=== PATIENT | male | born 1980 | race Caucasian/White ===

== ENCOUNTER → 2020-10-01 08:34 | Outpatient (CLI) | payer OTHER ==
--- NOTE | 2020-10-03 15:38 | ST ---
PATIENT:MCKENZIE MACDONALD MEDICAL RECORD: [id number] SEX: M LOCATION:[facility] ORDER #: ADMISSION DATE: 10/01/20 AGE OF PATIENT: 40 REFERRING PHYSICIAN: INTERPRETING PHYSICIAN: SAKSHI MERLOS MD DATE OF SERVICE: 10/01/2020 PROCEDURE: Nuclear stress test. GATED IMAGING: Normal gated. Normal wall motion. Normal EF. Calculated EF 61%. SPECT IMAGING: SPECT imaging was performed. FINDINGS: 1. Short axis view: Short axis view shows a reversible defect from the mid anterior wall down to the anterior apex as well as reversible defect along the inferior base. This was confirmed in the horizontal axis, which shows a mid anterior and down to the anterior apical reversible ischemia as well as a reversible defect along the inferior base. 2. Vertical axis: Vertical axis shows a reversible apical defect. FINAL IMPRESSION: 1. Normal gated with normal wall motion, normal ejection fraction 61%. 2. Abnormal SPECT imaging with reversible ischemia seen in 2 territories. FINAL RECOMMENDATION: Scan is concerning for multivessel coronary artery disease with no known history of coronary artery disease and ongoing symptomatology. We will consider angiography as part of further workup. TRANSINT:[id number] Voice Confirmation ID: [id number] DOCUMENT ID: [id number] SAKSHI MERLOS MD at 1538 CC: [id number] DICTATION DATE: 10/02/20 0846 GREEN CHAIN OPERATOR: 10/03/20 0723 DEP CLI 10/01/20 [place] [id number] [place] [id number]
== END | disposition home or self-care (01) ==
LOC: D.HCCARDIO 08:34
PROVIDERS: ATTEND Internal Medicine Interventional Cardiology
DX: R06.00 Dyspnea, unspecified (principal)

== ENCOUNTER 2020-10-31 07:06 | Day surgery (SDC) | payer OTHER ==
[~2020-10-31] VITALS: Ht 175.3 cm; Wt 105.4 kg
--- NOTE | ~2020-10-31 | HEMODYNAMI ---
PATIENT:MCKENZIE MACDONALD MEDICAL RECORD: [id number] : 76 LOCATION:[facility] ADMISSION DATE: 10/31/20 Generatedon:19:40 Patient name: MCKENZIE MACDONALD Patient #: [id number] SSN: : 1980 Date of study: 10/31/2020 Page: Of Hemodynamic Procedure Report Patient Data Patient Demographics Procedure consent was obtained First Name: MCKENZIE Gender: Male Last Name: RENAE : 1980 Patient #: [id number] Age: 40 year(s) Race: Unknown Additional ID: [id number] Contact details Address: [address] [place] [address] State: [place] City: [facility] Zip code: [address] Past Medical History Performed procedures and imaging results Date Procedure Procedure Results Comments Echocardiography Allergies: No known allergies Admission Admission Data Admission Date: 10/31/2020 Admission Time: 7:06 Arrival Date: 10/31/2020 Arrival Time: 0:00 Height (in.): 69 BSA: 2.2 (m2) Height (cm.): 175.26 BMI: 34.26 (kg/m2) Weight (lbs.): 232 Weight (kg.): 105.23 Lab Results Lab Result Date: 10/31/2020 Lab Result Time: 0:00 Biochemistry Name Units Result Min Max BUN mg/dl 14 --(--*-)-- 7 18 Creatinine mg/dl 1.2 --(---*)-- 0.6 1.3 eGFR ml/min 85.51022 -*(----)-- 90 120 AM CBC Name Units Result Min Max Hematocrit % 46.4 --(-*--)-- 42 54 Hemoglobin g/dl 14.5 --(*---)-- 13.5 17.5 Procedure Procedure Types Cath Procedure Diagnostic Procedure C LH w/Coronaries Sedation Charges Moderate Sedation 10-24 minutes Procedure Description Procedure Date Procedure Date: 10/31/2020 Procedure Start Time: 9:15 Procedure End Time: 9:37 Procedure Staff Name Function Sabas Palomo MD Performing Physician Merle Joyner RT Monitor Mil Martin RN Nurse Judie Mtz RT Scrub Procedure Data Cath Procedure Fluoroscopy Diagnostic fluoroscopy Total fluoroscopy Time: 2.9 time: 2.9 min min Diagnostic fluoroscopy Total fluoroscopy dose: 783 dose: 783 mGy mGy Contrast Material Contrast Material Type Amount (ml) Isovue 300 55 Entry Location Entry Primary Successful Side Size Upsize Upsize Entry Closure Diallo ccessful Closure Location (Fr) 1 (Fr) 2 (Fr) Remarks Device Remarks Radial Right 6 Fr Mechanical artery Short Compression Estimated blood loss: 5 ml Diagnostic catheters Device Type Used For End Catheter Placement DIAGNOSTIC [place] 110cm 5 Procedure Fr catheter ([id number]) DIAGNOSTIC AR1 MOD 5Fr Procedure catheter ([id number]) Procedure Complications No complications Procedure Medications Medication Administration Route Dosage 0.9% NaCl I.V. 100 ml/hr Oxygen etCO2 Nasal cannula 2 l/min Heparin Flush Bag added to field 2 bags (1000units/500ml NS) Lidocaine 2% added to field 20 Radial Cocktail added to field 1 syringe (Verapamil 2mg/Nitro 400mcg/Heparin 1500units) Versed I.V. 2 mg Fentanyl I.V. 100 mcg Radial Cocktail I.A. 1 syringe (Verapamil 2mg/Nitro 400mcg/Heparin 1500units) Versed I.V. 2 mg Fentanyl I.V. 50 mcg Hemodynamics Rest BSA: 2.2 (m2) HGB: 14.5 (g/dl) O2 Consumption: Estimated: 275.73 (ml/min) O2 Con sumption indexed: Estimated:125.33 (ml/min/m) Heart Rate: 80 (bpm) Pressure Samples Time Site Value (mmHg) Purpose Heart Use Rate(bpm) 9:19 LV 129/-17,-3 Snapshot 82 Gradients Valve Time Site Site Mean SEP/DFP Peak To Heart Use 1 2 (mmHg) (sec/min) Peak Rate (mmHg) (bpm) Aortic 9:19 LV AO 85 Snapshots Pre Cath Intra NCS Post Cath Vital Signs Time Heart Resp SPO2 etCO2 NIBP (mmHg) Rhythm Pain Sedation Rate (ipm) (%) (mmHg) Status Level (bpm) 8:43:12 79 19 97 0 125/81(111) NSR 0 (11) 10(A) , No pain 8:47:24 77 17 98 35.1 131/79(115) NSR 0 (11) 10(A) , No pain 8:51:36 64 18 98 41.9 128/90(101) NSR 0 (11) 10(A) , No pain 8:55:48 64 17 96 35.1 121/76(99) NSR 0 (11) 10(A) , No pain 9:00:53 64 17 97 42 121/75(94) NSR 0 (11) 10(A) , No pain 9:05:05 66 15 94 37.4 121/74(95) NSR 0 (11) 10(A) , No pain 9:09:19 62 16 99 38.9 118/71(103) NSR 0 (11) 10(A) , No pain 9:13:35 76 14 98 38.9 119/65(96) NSR 0 (11) 10(A) , No pain 9:17:49 83 16 98 37.4 133/68(93) NSR 0 (11) 9(A) , No pain 9:22:01 79 18 95 31.3 115/64(78) NSR 0 (11) 9(A) , No pain 9:27:00 82 18 97 38.9 Measuring NSR 0 (11) 9(A) , No pain 9:27:06 79 20 97 38.9 122/72(106) NSR 0 (11) 9(A) , No pain 9:32:05 70 16 38.9 Measuring NSR 0 (11) 9(A) , No pain 9:32:13 67 18 98 39.7 108/65(81) NSR 0 (11) 9(A) , No pain 9:37:21 65 17 97 38.2 112/66(87) NSR 0 (11) 9(A) , No pain Medications Time Medication Route Dose Verified Delivered Reason Notes Effectiveness by by 8:46:49 0.9% NaCl I.V. 100 Mil Mil Per ml/hr Mario Martin physician RN RN 8:46:58 Oxygen etCO2 2 l/min Mil Mil for low 02 Nasal Mario Martin sats cannula RN RN 8:47:09 Heparin Flush added 2 bags Mil Mil used for Bag to Lordilshad Martin procedure (1000units/500ml field RN RN NS) 8:47:25 Lidocaine 2% added 20ml Mil Mil for local to vial Lorigan Lordilshad anesthetic RN RN 8:47:38 Radial Cocktail added 1 Mil Mil used for (Verapamil to syringe Lorigan Mario procedure 2mg/Nitro field FIELDS RN 400mcg/Heparin 1500units) 9:14:18 Versed I.V. 2 mg Mil Mil for sedation Mario Martin RN RN 9:14:28 Fentanyl I.V. 100 mcg Mil Mil for sedation Mario Martin RN RN 9:18:21 Radial Cocktail I.A. 1 Mil Sabas for (Verapamil syringe Aletheaigan Palomo MD vasodilation 2mg/Nitro RN 400mcg/Heparin 1500units) 9:18:29 Versed I.V. 2 mg Mil Mil for sedation Mario Martin RN RN 9:18:39 Fentanyl I.V. 50 mcg Mil Mil for sedation Mario Martin RN diamond grinder Log Time Note 8:04:22 Informed consent obtained and on chart 8:18:29 Procedure Status Elective Heart Cath (OP). 8:18:32 Time tracking: Regular hours (M-F 7:00 - 5:00) 8:18:35 Plan of Care:Hemodynamics will remain stable., Cardiac rhythm will remain stable., Comfort level will be maintained., Respiratory function will remain adequate., Patient/ family verbilizes understanding of procedure., Procedure tolerated without complication., Recovers from procedure without complications.. 8:19:54 H&P Date Dictated: 10/09/2020 Within 30 days and on chart., H&P Addendum completed by physician on day of procedure. (MUST COMPLETE FOR ALL OUTPATIENTS). 8:23:12 Patient Weight : 232 lbs 8:23:14 Patient Height : 69 inches 8:23:17 Arrival Date: 10/31/2020 12:00:00 AM 8:26:09 Mil Martin RN sent for patient. Start room use. 8:32:44 Patient received from Pre/Post Procedure Room to [facility] 3 Alert and oriented. Tansferred to table in Supine position. 8:34:18 Warm blankets applied, and geneva hugger turned on for patient comfort. 8:34:18 Correct patient and procedure confirmed by team. 8:34:18 ECG and BP/O2 sat monitors applied to patient. 8:34:25 Pre-procedure instructions explained to patient. 8:34:25 Pre-op teaching completed and patient verbalized understanding. 8:42:06 Vital chart was started 8:42:08 Baseline sample Acquired. 8:42:15 Rhythm: sinus rhythm 8:42:16 Full Disclosure recording started 8:42:17 Family in patients room. 8:42:19 Patient NPO since Midnight. 8:42:24 Patient allergic to No known allergies 8:42:26 Is patient on blood thinner?No 8:42:28 Patient diabetic? No. 8:42:30 Previous problem with sedation/anesthesia? No ? 8:42:31 Snore? Yes 8:42:32 Sleep apnea? Yes 8:42:32 Deviated septum? No 8:42:34 Opens mouth fully? Yes 8:42:34 Sticks out tongue? Yes 8:42:36 Airway obstruction? No ? 8:42:38 Dentures? No ? 8:42:40 Pre procedure: right dorsailis pedis pulse 1+ Palpable, but thready & weak; easily obliterated 8:42:42 Modified Joseph's test Ulnar < 7 seconds 8:42:44 Patient pain scale 0/10 ?. 8:42:49 IV patent on arrival in right antecubital with 0.9% NaCl at [facility]. 8:42:53 Right Radial & Right Groin area was prepped with chlora-prep and draped in sterile fashion 8:42:54 Alarms reviewed by R. N. 8:42:55 Sharps counted by scrub and verified by R.N. 8:46:49 0.9% NaCl 100 ml/hr I.V. was administered by Mil Martin RN; Per physician; Verbal order read back and verified. 8:46:58 Oxygen 2 l/min etCO2 Nasal cannula was administered by Mil Martin RN; for low 02 sats; Verbal order read back and verified. 8:47:09 Heparin Flush Bag (1000units/500ml NS) 2 bags added to field was administered by Mil Martin RN; used for procedure; Verbal order read back and verified. 8:47:25 Lidocaine 2% 20ml vial added to field was administered by Mil Martin RN; for local anesthetic; Verbal order read back and verified. 8:47:38 Radial Cocktail (Verapamil 2mg/Nitro 400mcg/Heparin 1500units) 1 syringe added to field was administered by Mil Martin RN; used for procedure; Verbal order read back and verified. 8:51:37 Use device set Radial Dx or PCI 8:51:38 ACIST Syringe (34652) opened to sterile field. 8:51:40 Bag Decanter (2001S) opened to sterile field. 8:51:40 ACIST Hand Control (92008) opened to sterile field. 8:51:40 ACIST Manifold (45991) opened to sterile field. 8:51:41 Tegaderm 4 x 4 (1626W) opened to sterile field. 8:51:42 Medline Cath Pack ([id number]) opened to sterile field. 8:51:43 MBrace Wrist Support ([id number]) opened to sterile field. 8:51:43 NEEDLE Cook 21G 4cm Radial (T07662) opened to sterile field. 8:51:44 EMERALD Guide Wire (502-075) opened to sterile field. 8:51:44 SHEATH 6FR RAIN (6624378) opened to sterile field. 8:56:35 Lab Result : BUN 14 mg/dl 8:56:35 Lab Result : Creatinine 1.2 mg/dl 8:56:35 Lab Result : eGFR AM 85.79838 ml/min 8:56:35 Lab Result : Hemoglobin 14.5 g/dl 8:56:35 Lab Result : Hematocrit 46.4 % 9:01:19 Lab results completed and on chart. 9:07:25 Zero performed for pressure channel P1 9:13:30 --------ALL STOP TIME OUT------ 9:13:30 Final Timeout: patient, procedure, and site verified with staff and physician. All members of the team are in agreement. 9:13:32 Right Radial & Right Groin site verified by team. 9:13:35 Fire Safety Assessment: A--An alcohol-based skin anteseptic being used preoperatively., C--Open oxygen or nitrous oxide is being used., D--An ESU, laser, or fiber-optic light is being used. 9:13:37 Physical assessment completed. ASA score P 2 - A patient with mild systemic disease as per Sabas Palomo MD. 9:13:39 2) 60-89 Mildly reduced kidney function, and other findings (as for stage 1) point to kidney disease. 9:13:42 Maximum allowable contrast dose (3.7 X eGFR X 0.75)236 ml. 9:13:45 Sedation plan: IV Moderate Sedation Medication:Versed, Fentanyl 9:14:18 Versed 2 mg I.V. was administered by Mil Martin RN; for sedation; Verbal order read back and verified. 9:14:28 Fentanyl 100 mcg I.V. was administered by Mil Martin RN; for sedation; Verbal order read back and verified. 9:15:31 Procedure started. 9:15:55 Local anesthetic to right radial artery with Lidocaine 2% by Sabas Palomo MD.INITIAL ACCESS ONLY 9:17:36 A 6 Fr Short sheath was inserted into the Right Radial artery 9:17:54 A DIAGNOSTIC [place] 110cm 5 Fr catheter (201113) was advanced over the wire and used for Procedure. 9:18:21 Radial Cocktail (Verapamil 2mg/Nitro 400mcg/Heparin 1500units) 1 syringe I.A. was administered by Sabas Palomo MD; for vasodilation; Verbal order read back and verified. 9:18:29 Versed 2 mg I.V. was administered by iMl Martin RN; for sedation; Verbal order read back and verified. 9:18:39 Fentanyl 50 mcg I.V. was administered by Mil Martin RN; for sedation; Verbal order read back and verified. 9:19:12 LV gram done using GALVAN 9:19:14 Injector settings: Ml/sec: 5, Volume: 15, 9:19:23 LV hemodynamics recorded. 9:19:28 EF : 60 % 9:22:24 LCA angiography performed. 9:22:35 Catheter exchanged over wire. 9:23:49 A DIAGNOSTIC AR1 MOD 5Fr catheter ([id number]) was advanced over the wire and used for Procedure. 9:24:12 RCA angiography performed. 9:25:14 Catheter removed. 9:25:24 Procedure ended.(Physican Out) 9:28:54 ZEPHYR REGULAR TR BAND (672563) opened to sterile field. 9:30:48 Sheath removed intact; hemostasis achieved with Mechanical Compression to the Right Radial artery. 9:30:52 Fluoroscopy time 02.90 minutes. 9:30:56 Fluoroscopy dose: 783 mGy 9:30:56 Flurop Dose total: 783 9:31:06 Dose Area Product 26739 mGy/cm. 9:31:17 Contrast amount:Isovue 300 55ml. 9:31:19 Maximum allowable dose exceeded? No. 9:31:20 Sharps counted by scrub and verified by R.N. 9:31:22 Chester band inflated with 10cc of air. 9:31:23 Insertion/operative site no bleeding no hematoma. 9:31:25 Post-procedure physical assessment completed. ASA score P 2 - A patient with mild systemic disease as per Sabas Palomo MD. 9:31:27 Post procedure rhythm: sinus rhythm 9:31:33 Estimated blood loss: 5 ml 9:31:34 Post procedure instruction explained to patient.Patient verbalizes understanding. 9:31:34 Patient needs reinforcement of post procedure teaching. 9:32:15 Procedure type changed to Cath procedure, Diagnostic procedure, LHC, C w/Coronaries, Sedation Charges, Moderate Sedation 10-24 minutes 9:36:06 Procedure and supply charges have been captured, reviewed, submitted and are correct. 9:37:04 Procedure Complication : No complications 9:37:07 Vital chart was stopped 9:37:08 [facility] Findings: mild to moderate CAD (<70%) 9:37:10 Operative report dictated upon procedure completion. 9:37:10 See physician's report for complete and final results. 9:37:11 Report given to Pre/Post Procedure Room. 9:37:13 Patient transfered to Pre/Post Procedure Room with Bed. 9:37:16 Procedure ended. 9:37:16 Full Disclosure recording stopped 9:37:21 End room use (Document Last) 9:39:41 Procedure ended.(Physican Out) Device Usage Item Name Manufacture Quantity Catalog Hospital Part Current Minimal Lot# / Number Charge Number Stock Stock Serial# Code ACIST Acist 1 08114 [id number] 20 Syringe Medical (20410) Systems Inc Bag Microtek 1 [id number] 5 Decanter Medical Inc. () ACIST Hand Acist 1 28802 226872 5 Control Medical (02820) Systems Inc ACIST Acist 1 01113 991947 5 Manifold Medical (60613) Systems Inc Tegaderm 4 3M 1 1626W 984941 5 x 4 (1626W) Medline Medline 1 [id number] 278021 5 Cath Pack ([id number]) MBrace Advanced 1 [id number] 327222 5 Wrist Vascular Support Dynamics ([id number]) NEEDLE Cook Cook Medical 1 K28831 785983 5 21G 4cm Radial (Z02772) EMERALD Cardinal 1 198-648 317299 5 Guide Wire Health (379-966) SHEATH 6FR Cardinal 1 2592781 048491 5 [facility] Health (7012698) DIAGNOSTIC Terumo 1 40-6753 673221 5 [place] 110cm 5 Fr catheter (765644) DIAGNOSTIC Cardinal 1 [id number] 340999 15 AR1 MOD 5Fr Health catheter ([id number]) ZEPHYR Cardinal 1 885118 885965 5 REGULAR TR Health BAND (583106) Signature Audit [place] Stage Time Signature Unsigned Intra-Procedure 10/31/2020 Merle Joyner 9:38:37 AM RT(R) Intra-Procedure 10/31/2020 Mil 9:39:41 AM Mario FIELDS Intra-Procedure 10/31/2020 Sabas Palomo MD 9:40:06 AM Signatures Performing Physician : Signature : Sabas Palomo MD Date : Time : Monitor : Merle Joyner Signature : RT Date : Time : Nurse : Mli Martin Signature : RN Date : Time : [place] [address]L[place] [address]
[2020-10-31] MEDS ORDERED: NORVASC2.5 MG PO (07:33)
[2020-10-31 07:46] VITALS: BP 152/79; Ht 175.3 cm; Wt 105.4 kg
[2020-10-31 08:07] LABS: BASOPHILS 0.9 % (0-2); EOSINOPHILS 1.7 % (0-7); HEMATOCRIT 46.4 % (42.0-54.0); HEMOGLOBIN 14.5 g/dL (13.5-17.5); IMMATURE GRANULOCYTES 0.4 % (0-5); LYMPHOCYTES 17.3 % (15-50); MCH 22.9 pg (26.0-34.0); MCHC 31.3 g/dL (31.0-37.0); MCV 73.4 fL (80.0-100.0); MEAN PLATELET VOLUME 10.1 fL (7.4-10.4); MONOCYTES 7.4 % (2-11); NEUTROPHIL ABS# 5.84 10x3/uL (1.78-5.38); NEUTROPHILS 72.3 % (40-80); PLATELET COUNT 235 10x3/uL (130-400); RBC 6.32 10x6/uL (4.20-6.10); RDW 15.7 % (11.5-14.5); WBC 8.1 10x3/uL (4.8-10.8)
[2020-10-31 08:28] LABS: ANION GAP 13.2 mmol/L (8-16); CALCIUM 9.4 mg/dL (8.5-10.1); CARBON DIOXIDE 27.8 mmol/L (21.0-32.0); CREATININE - SERUM 1.2 mg/dL (0.6-1.3); LDL-HDL RATIO 1.8 ratio (1.5-3.5)
--- NOTE | 2020-10-31 09:50 | NUR ---
PT RECEIVED VIA STRETCHER BACK TO ROOM 5 FOR RECOVERY. PT DROWSY, VERBALLY AROUSABLE. IV PATENT INFUSING VIA ORDERS TO R ARM. ZYPHER BAND AND IMMOBILIZER TO R WRIST/ARM. NO BLEEDING OR S/S HEMATOMA NOTED. ARM AND HAND WARM AND PINK, PULSES PALPABLE AND CAP REFILL BRISK. PT INSTRUCTED NOT TO USE ARM, HE VERBALIZED UNDERSTANDING. PT PLACED ON CARDIAC MONITORS, HR NSR RATE 65, BP 107/68, RR 19, SAT 99 ON ROOM AIR. S/O AT BEDSIDE, CALL LIGHT IN REACH
--- NOTE | 2020-10-31 10:15 | NUR ---
PT RESTING COMFORTABLY. ZBAND AND IMMOBILIZER IN PLACE, NO S/S HEMATOMA OR BLEEDING NOTED. ARM AND HAND PINK AND WARM, PULSES PALPABLE. CALL LIGHT IN REACH, S/O AT BS. VSS
--- NOTE | 2020-10-31 11:00 | NUR ---
4 ADD'L CC AIR REMOVED FROM Z BAND, NO BLEEDING OR S/S HEMATOMA NOTED. VSS. CALL LIGHT IN REACH. PT DENIES PAIN OR NEEDS AT THIS TIME.
--- NOTE | 2020-10-31 11:26 | NUR ---
REMAINING AIR REMOVED FROM Z BAND. DISCHARGE INSTRUCTIONS REVIEWED W PT AND FIANCE, BOTH VERBALIZED UNDERSTANDING. IV REMOVED W CATH INTACT, MONITORS REMOVED. PT UP TO DRESS
--- NOTE | 2020-10-31 11:33 | NUR ---
ZBAND REMOVED, 2X2 AND SM TEGADERM DRESSING APPLIED. IMMOBILIZER RE POSITIONED AND SECURED. PT AMBULATED TO BR, VOIDING W/O DIFFICULITY
--- NOTE | 2020-10-31 11:38 | NUR ---
PT DISCHARGED VIA WC TO FAMILY WAITING IN PRIVATE VEHICLE. PT HAD ALL BELONGINGS AND DISCHARGE PAPERWORK IN HAND
== END 2020-10-31 11:35 | disposition home or self-care (01) ==
LOC: D.CATH 07:06
PROVIDERS: ATTEND Internal Medicine Cardiovascular Disease
DX: I20.8 Other forms of angina pectoris (principal); R94.39 Abnormal result of other cardiovascular function study; R06.09 Other forms of dyspnea; I10 Essential (primary) hypertension